=== PATIENT | male | born 1995 | race Hispanic/Latino ===

== ENCOUNTER 2022-07-26 06:10 | Emergency (ER) | payer SELFPAY ==
[2022-07-26] MEDS ORDERED: TETANUS & DIPHTHERIA TOX,ADULT 0.5 ML VIAL ONE (07:12)
[2022-07-26] MEDS ORDERED: LIDOCAINE 1% 20 ML MDV ONE (07:12)
--- NOTE | 2022-07-26 08:14 | ER ---
Nurse's Notes [facility] Name: Bj Aguirre Age: 26 yrs Sex: Male : 1995 Arrival Date: 07/26/2022 Time: 06:15 Bed 14 Private MD: Diagnosis: Laceration to right forearm Presentation: 07/26 06:29 Chief complaint: Patient states: cut myself on R wrist area inadvertently with scissors ke1 at home around 0200. Coronavirus screen: Vaccine status: Patient reports being unvaccinated. Ebola Screen: No symptoms or risks identified at this time. Complicating Factors:. Initial Sepsis Screen: Does the patient meet any 2 criteria? No. Patient's initial sepsis screen is negative. Does the patient have a suspected source of infection? No. Patient's initial sepsis screen is negative. Risk Assessment: Do you want to hurt yourself or someone else? Patient reports no desire to harm self or others. Onset of symptoms was July 26, 2022 at 02:00. 06:29 Method Of Arrival: Ambulatory ke1 06:29 Acuity: JOHN 3 ke1 Triage Assessment: 06:34 General: Appears in no apparent distress. Behavior is appropriate for age. Pain: ke1 Complains of pain in R wrist. Historical: - Allergies: 06:34 No Known Allergies; ke1 - PMHx: 06:34 None; ke1 - Immunization history:: Adult Immunizations Client reports having NOT received the Covid vaccine. - Social history:: Smoking status: Patient reports the use of cigarette tobacco products, denies chronic smoking, but will smoke occasionally. - Family history:: not pertinent. Screenin:35 [facility] ED Fall Risk Assessment (Adult) History of falling in the last 3 months, ke1 including since admission No falls in past 3 months (0 pts) Confusion or Disorientation No (0 pts) Intoxicated or Sedated No (0 pts) Impaired Gait No (0 pts) Mobility Assist Device Used No (0 pt) Altered Elimination No (0 pt) Score/Fall Risk Level 0 - 2 = Low Risk. Abuse screen: Denies threats or abuse. Nutritional screening: No deficits noted. Tuberculosis screening: No symptoms or risk factors identified. Assessment: 06:35 Musculoskeletal: Capillary refill < 3 seconds. ke1 07:57 General: Appears in no apparent distress. Behavior is calm, cooperative. Pain: Pain hb currently is 5 out of 10 on a pain scale. Neuro: Level of Consciousness is awake, alert, obeys commands, Oriented to person, place, time, situation. Cardiovascular: Patient's skin is warm and dry. Respiratory: Respiratory effort is even, unlabored, Respiratory pattern is regular, symmetrical. GI: No signs and/or symptoms were reported involving the gastrointestinal system. : No signs and/or symptoms were reported regarding the genitourinary system. EENT: No signs and/or symptoms were reported regarding the EENT system. Derm: Skin is pink, warm \T\ dry. Injury Description: Laceration sustained to dorsal aspect of right forearm is 2.6 to 7.5 cm long, was sustained 12-24 hours ago. Vital Signs: 06:29 BP 124 / 83; Pulse 102; Resp 17; Temp 99.5; Pulse Ox 100% on R/A; Weight 73.48 kg; ke1 Height 5 ft. (152.40 cm); Pain 5/10; 06:29 Body Mass Index 31.64 (73.48 kg, 152.40 cm) ke1 ED Course: 06:15 Patient arrived in ED. [id number] 06:19 Jailene Leroy, RN is Primary Nurse. ke1 06:34 Triage completed. ke1 06:35 Arm band placed on left wrist. ke1 06:35 Bed in low position. Call light in reach. ke1 07:01 Davian Hartmann MD is Attending Physician. rt 08:43 No provider procedures requiring assistance completed. Patient did not have IV access hb during this emergency room visit. 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 Lot #: [id number]. } Route: IM; Site: right deltoid; 08:35 Follow up: Response: (VIS) Vaccine information sheet provided today. Questions and/or hb concerns addressed. VIS edition date: Jan 11, 2021.; No adverse reaction 08:00 Drug: Lidocaine (1 %) 5 ml Volume: 5 ml; Route: Infiltration; hb 08:35 Follow up: Response: No adverse reaction hb Outcome: 08:13 Discharge ordered by . rt 08:43 Discharged to home ambulatory. hb 08:43 Condition: stable 08:43 Discharge instructions given to patient, Instructed on discharge instructions, follow up and referral plans. medication usage, Demonstrated understanding of instructions, follow-up care, medications, Prescriptions given X 1. 08:44 Patient left the ED. Signatures: Tonie Rendon, RN RN Anyi Anderson [email or web address] Jailene Leroy RN RN ke1 Davian Hartmann MD MD rt
--- NOTE | 2022-07-26 08:14 | EDPHYS ---
Physician Documentation [facility] Name: Bj Aguirre Age: 26 yrs Sex: Male : 1995 Arrival Date: 07/26/2022 Time: 06:15 Bed 14 Private MD: ED Physician Davian Hartmann HPI: 07/26 08:16 This 26 yrs old Male presents to ER via Ambulatory with complaints of rt Laceration To Arm, Laceration To Hand. 08:16 Patient presents to the ED with a laceration to the right forearm with scissors. This rt occurred at about 2 AM. The patient accidentally cut the forearm. He stated there was bleeding at that time, now controlled. Denies other injury, other acute complaints. Denies numbness or tingling to the fingers.. Historical: - Allergies: 06:34 No Known Allergies; ke1 - PMHx: 06:34 None; ke1 - Immunization history:: Adult Immunizations Client reports having NOT received the Covid vaccine. - Social history:: Smoking status: Patient reports the use of cigarette tobacco products, denies chronic smoking, but will smoke occasionally. - Family history:: not pertinent. ROS: 08:17 Constitutional: Negative for fever, chills, and weight loss, Eyes: Negative for injury, rt pain, redness, and discharge, Cardiovascular: Negative for chest pain, palpitations, and edema, Respiratory: Negative for shortness of breath, cough, wheezing, and pleuritic chest pain, Abdomen/GI: Negative for abdominal pain, nausea, vomiting, diarrhea, and constipation, Neuro: Negative for headache, weakness, numbness, tingling, and seizure, Psych: Negative for depression, anxiety, suicide ideation, homicidal ideation, and hallucinations. 08:17 MS/extremity: Positive for laceration. Exam: 08:17 Constitutional: This is a well developed, well nourished patient who is awake, alert, rt and in no acute distress. Head/Face: Normocephalic, atraumatic. Skin: Warm, dry with normal turgor. Normal color with no rashes, no lesions, and no evidence of cellulitis. Neuro: Awake and alert, GCS 15, oriented to person, place, time, and situation. Cranial nerves II-XII grossly intact. Motor strength 5/5 in all extremities. Sensory grossly intact. Cerebellar exam normal. Normal gait. Psych: Awake, alert, with orientation to person, place and time. Behavior, mood, and affect are within normal limits. 08:17 Musculoskeletal/extremity: 4 cm laceration to the right forearm, anteriorly. There is a small muscle body laceration, no tendon involvement. Radial pulse is 2+. Sensation is intact distally. 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 No neurovascular compromise apparent. No foreign bodies identified.. Vital Signs: 06:29 BP 124 / 83; Pulse 102; Resp 17; Temp 99.5; Pulse Ox 100% on R/A; Weight 73.48 kg; ke1 Height 5 ft. (152.40 cm); Pain 5/10; 06:29 Body Mass Index 31.64 (73.48 kg, 152.40 cm) ke1 Laceration: 08:17 Wound Repair of 4cm ( 1.6in ) subcutaneous laceration to right arm and dorsal aspect of rt right forearm. Hemostasis noted.. Distal neuro/vascular/tendon intact. Anesthesia: Wound infiltrated with 3 mls of 1% lidocaine. Wound prep: Extensive cleansing by nurse. Skin closed with 9 3-0 Prolene using interrupted sutures and sterile technique. Dressed with Kerlix. Patient tolerated well. MDM: 07:02 Patient medically screened. rt 08:17 Differential diagnosis: Tendon injury, muscle injury, vascular injury, simple rt laceration. Data reviewed: vital signs, nurses notes. Consideration of Admission/Observation Escalation of care including admission/observation considered. Very small amount of muscle body involvement, no functional compromise, no obvious tendon injury. Do not believe that orthopedics consultation is necessary for closure.. Test considered but Not performed: CT: There is no arterial bleeding noted, other swelling to the area, radial pulses 2+, there is good capillary refill. Have a low suspicion for radial artery injury, CT angiogram is not indicated.. Counseling: I had a detailed discussion with the patient and/or guardian regarding: the historical points, exam findings, and any diagnostic results supporting the discharge/admit diagnosis, the need for outpatient follow up, to return to the emergency department if symptoms worsen or persist or if there are any questions or concerns that arise at home, Discussed with the patient signs of infection or compartment syndrome, or return if the symptoms develop.. Response to treatment: the patient's symptoms have markedly improved after treatment. 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 Lot #: [id number]. } Route: IM; Site: right deltoid; 08:35 Follow up: Response: (VIS) Vaccine information sheet provided today. Questions and/or hb concerns addressed. VIS edition date: Jan 11, 2021.; No adverse reaction 08:00 Drug: Lidocaine (1 %) 5 ml Volume: 5 ml; Route: Infiltration; hb 08:35 Follow up: Response: No adverse reaction hb Disposition Summary: 07/26/22 08:13 Discharge Ordered Location: Home rt Problem: new rt Symptoms: have improved rt Condition: Stable rt Diagnosis - Laceration to right forearm rt Followup: rt - With: Private Physician - When: 10 - 14 days - Reason: Staple/Suture removal Discharge Instructions: - Discharge Summary Sheet rt - Laceration Care, Adult rt Forms: - Medication Reconciliation Form rt - Thank You Letter rt - Work release form rt - Antibiotic Education rt - Prescription Opioid Use rt Prescriptions: - Cephalexin 500 mg Oral Capsule - take 1 capsule by ORAL route every 6 hours for 10 days; 40 capsule; Refills: 0, rt Product Selection Permitted Signatures: Tonie Rendon RN RN Jailene Leroy RN RN ke1 Davian Hartmann MD MD rt Corrections: (The following items were deleted from the chart) 08:17 08:16 Patient presents to the ED with a laceration to the right forearm with scissors. rt This occurred at about 2 AM. The patient. rt
[2022-07-26 08:48] VITALS: BP 124/83; TEMP 99.5; O2SAT 100
== END 2022-07-26 08:44 | disposition home or self-care (01) ==
LOC: ER 06:10
PROC: 0HQDXZZ Repair Right Lower Arm Skin, External Approach (ICD-10-PCS; principal; 2022-07-26)
DX: S51.811A Laceration without foreign body of right forearm, initial encounter (principal); Z23 Encounter for immunization
CPT/HCPCS: 90471; 90714; 99283; J2001